=== PATIENT | male | born 1995 | race Two or more races ===

== ENCOUNTER 2018-01-25 17:39 | Emergency (ER) | payer OTHER ==
[~2018-01-25] VITALS: Ht 170.2 cm; Wt 101.2 kg
[2018-01-25 18:28] LABS: HEMATOCRIT 34.4 % (38.0-50.0); HEMOGLOBIN 11.7 G/DL (12.5-16.6); MCH 29.8 PG (29.0-34.0); MCV 87.5 FL (86-99); PLATELET COUNT 241 K/uL (156-360); RBC DIS.WIDTH-CV 12.3 % (11.8-14.6); RBC DIS.WIDTH-SD 39.9 % (39-53); RED BLOOD COUNT 3.93 M/uL (4.00-5.50); WHITE BLOOD COUNT 5.9 K/uL (4.1-10.2)
[2018-01-25 18:44] LABS: CHLORIDE 101 mEq/L (99-109); POTASSIUM 4.1 mEq/L (3.7-5.4); SODIUM 137 mEq/L (136-147)
[2018-01-25 18:45] LABS: GLUCOSE 89 mg/dL (70-99)
[2018-01-25 18:45] LABS: APPEARANCE CLEAR ((CLEAR)); BILIRUBIN NEGATIVE; BLOOD NEGATIVE; COLOR YELLOW ((YELLOW)); GLUCOSE (STRIP) NEGATIVE; KETONES NEGATIVE; LEUKOCYTES NEGATIVE; NITRITE NEGATIVE; PROTEIN (STRIP) NEGATIVE; SPECIFIC GRAVITY 1.009 (1.000-1.030); UROBILINOGEN 0.2 MG/DL (0.2-1.0)
[2018-01-25 18:49] LABS: CREATININE 0.9 mg/dL (0.6-1.3); GFR ESTIMATE (CALCULATED) > 59 mL/min/ (58.99-99999)
[2018-01-25 18:50] LABS: UREA NITROGEN (BUN) 9 mg/dL (9-23)
[2018-01-25] MEDS ORDERED: ZOFRAN ODT8 MG PO (19:45)
[2018-01-25 20:15] VITALS: BP 140/69
== END 2018-01-25 20:17 | disposition home or self-care (01) ==
LOC: EME 17:39
PROVIDERS: Physician Assistant
DX: J95.830 Postprocedural hemorrhage of a respiratory system organ or structure following a respiratory system procedure (principal); R03.0 Elevated blood-pressure reading, without diagnosis of hypertension; R11.0 Nausea; Z98.890 Other specified postprocedural states
CPT/HCPCS: 80048; 81003; 85027; 99281; 99284